=== PATIENT | male | born 1975 | race African-American/Black ===

== ENCOUNTER 2019-10-02 04:18 | Emergency (ER) | payer MEDICAID ==
[~2019-10-02] VITALS: Ht 188 cm; Wt 81.6 kg
[2019-10-02 04:31] VITALS: BP 132/83
[2019-10-02 04:52] VITALS: BP 132/83
== END 2019-10-02 04:52 ==
LOC: MED 04:18
DX: S00.81XA Abrasion of other part of head, initial encounter (principal); S29.8XXA Other specified injuries of thorax, initial encounter; Z02.89 Encounter for other administrative examinations; Y35.833A Legal intervention involving a conducted energy device, suspect injured, initial encounter; Y93.89 Activity, other specified; Y92.89 Other specified places as the place of occurrence of the external cause; Y99.8 Other external cause status
CPT/HCPCS: 99283